=== PATIENT | female | born 1945 | race Caucasian/White ===

== ENCOUNTER 2016-04-25 19:31 | Observation (INO) | payer MEDICARE ==
[2016-04-25] MEDS ORDERED: KETOROLAC TROMETHAMINE 30 MG/ML VIAL IV ONE (19:38)
[2016-04-25] MEDS ORDERED: MORPHINE SULFATE 2 MG/ML DISP.SYRIN IV ONE (19:41)
[2016-04-25] MEDS ORDERED: MORPHINE SULFATE 2 MG/ML DISP.SYRIN ONE (19:41)
--- NOTE | 2016-04-25 19:48 | ERNOTE ---
Abdominal HPI - General Time Seen by Provider: 04/25/16 19:32 Source: patient, other Exam Limitations: no limitations - Immun/Allergies/Home Medications Immunizatons: IMMUNIZATION HX Immunizations Up to Date Yes Allergies/Adverse Reactions: Allergies pseudoephedrine HCl [From Sudafed] Allergy (Verified 04/25/16 19:56) Home Medications: HOME MEDICATIONS Aspirin 650 mg PO DAILY 11/19/15 [Last Taken Unknown] Methylcellulose [Fiber] 2 cap PO DAILY 11/19/15 [Last Taken Unknown] - History of Present Illness Narrative: Patient started to have abdominal pain around 14:30 this afternoon, was evaluated in the [facility] ER,diagnosed with acute appendicitis, and transferred here for surgery Date (Duration): 04/25/16 Time (Timing): 02:30 Timing: constant Quality: moderate Associated Symptoms: Absent: diaphoresis, fever/chills, nausea, vomiting Prior Abdominal Problems: Present: none Prior Treatment: Absent: recently seen, currently on antibiotics Review of Systems - Review of Systems Constitutional: Absent: recent illness, fever Respiratory: Absent: shortness of breath Cardiology: Absent: chest pain Gastrointestinal/Abdominal: Present: See HPI - Patient's Past Medical History Patient History - Medical: No pertinent hx Patient History - Cardiac/Respiratory: Hypertension Patient History - Cancer: No Hx of Cancer Patient History - Surgical Procedures: Tubal Ligation Patient History - Other: None - Social History Living Situations: home Psych History: No pertinent hx Alcohol Use: none Drug Use: none - Immunizations Immunizations Up to Date: Yes Physical Exam - Physical Exam General Appearance: Present: wd/wn, alert, mild distress Respiratory: Present: no respiratory distress, normal breath sounds, lungs clear Cardiovascular/Chest: Present: regular rate, rhythm, no murmur Gastrointestinal/Abdominal: Present: normal bowel sounds, tenderness - right sided, McBurney sign Neurological Exam: Present: alert, oriented, normal mood/affect Skin Exam: Present: normal color, warm/dry ED Progress - Results and Orders Results and Orders: reviewed chart from [facility] (labs and CT) - Vital Signs Patient's Vital Signs:: I have reviewed the patient's vital signs. - Progress/Reassessment Progress Note-Subjective: 04/25/16 19:[address] Oliver in ER Departure - Departure Clinical Impression: Acute appendicitis Qualifiers: Acute appendicitis type: unspecified acute appendicitis type Qualified Code(s) : K35.80 - Unspecified acute appendicitis Disposition: [facility] Condition: Good
[2016-04-25] MEDS ORDERED: CEFOXITIN SODIUM 2 GM in DEXTROSE 5 % IN WATER 100 ML IV ONE ×2 (20:15)
--- NOTE | 2016-04-25 20:23 | HP ---
Chief Complaint - Chief Complaint Date of Service: 04/25/16 Time of Service: 20:09 Chief Complaint: appendicitis History of Present Illness: Started having abdominal pain this afternoon. Presented to [facility] ER for evaluation. Found to have RLQ tenderness with CT scan evidence of acute appendicitis. There is no surgeon at that facility, and she was transferred here for treatment. - Patient's Past Medical History Patient History - Medical: No pertinent hx, Other - bleeding ulcer [facility] ?2006. She has been seen by Family Practice(?) at [facility] but not for 5 years Patient History - Cardiac/Respiratory: Hypertension Patient History - Cancer: No Hx of Cancer Patient History - Surgical Procedures: Tubal Ligation Patient History - Other: None - Family History Mother Family History - Medical: Other - appendicitis - Social History Living Situations: home Psych History: No pertinent hx Smoking Status: Never smoker Alcohol Use: none Drug Use: none - Immunizations Immunizations Up to Date: Yes Hx Pneumococcal Vaccination: No History of Influenza Vaccine: Yes Review Of Systems (GEN) - Review of Systems Generalized/Overall Review: Present: No Symptoms Reported EENTM: Present: Other - bug bite right cheek Respiratory: Present: No Symptoms Reported Cardiac: Absent: Chest Pain, Edema, Palpitations Abdominal: Present: Abdominal Pain, Other - hernia Genitourinary: Present: Other - wears a pad for leakage, occasional nocturia. Absent: Dysuria Musculoskeletal: Present: Joint Pain, Other - "arthritis" Neurological: Present: No Symptoms Reported Skin: Present: Other - lesion right cheek 3 days Immunizations: IMMUNIZATION HX Immunizations Up to Date Yes History of Influenza Vaccine Yes Hx Pneumococcal Vaccination No Allergies/Adverse Reactions: Allergies Allergy/AdvReac Type Severity Reaction Status Date / Time pseudoephedrine HCl Allergy Verified 04/25/16 19:56 [From [facility]] Home Medications: HOME MEDICATIONS Aspirin 650 mg PO DAILY 11/19/15 [Last Taken Unknown] Methylcellulose [Fiber] 2 cap PO DAILY 11/19/15 [Last Taken Unknown] Exam - Exam Vital Signs: Vital Signs - Last Taken Temp 37.8 C H 04/25/16 19:33 Pulse 89 04/25/16 19:55 Resp 20 04/25/16 19:55 BP 143/68 04/25/16 19:55 Pulse Ox 96 04/25/16 19:55 Constitutional: Present: Alert, Oriented x3, Cooperative, Mild distress ENT Exam: Present: hearing grossly normal, other - fetor jag Eye Exam: bilateral eye: normal inspection Neck: Present: other - short thick neck Breasts: Present: Exam deferred Respiratory: Present: lungs clear, no accessory muscle use Cardiovascular/Chest: Present: regular rate, rhythm, no JVD Abdomen: Present: other - tender with guarding RLQ, hernia to right of midline above umbilicus /Rectal: Present: Exam deferred Extremity: Present: normal range of motion, no pedal edema, no calf tenderness Skin Exam: Present: normal color Neurologic: Present: real estate manager II-XII nml as tested, no motor/sensory deficits Eye contact: Present: cooperative, good eye contact, normal speech Thoughts: Present: normal thought pattern Diagnostic Studies: CT shows acute appendicitis. Assessment/Plan - Assessment/Plan (1) Acute appendicitis Assessment: Discussed appendicitis and appendectomy. The risks of operation and expected course explained. Questions answered and informed consent obtained. SCD's, chlorhexidine wipes. Pre-op Mefoxin. Problem: Acute
[2016-04-25] MEDS ORDERED: RINGERS SOLUTION,LACTATED 1,000 ML IV ONE (20:40)
[2016-04-25] MEDS ORDERED: MUPIROCIN 22 APPL TUBE TP ONE (21:07)
[2016-04-25] MEDS ORDERED: BUPIVACAINE HCL/EPINEPHRINE 50 ML VIAL IJ ONE ×2 (21:07)
[2016-04-25] MEDS ORDERED: oxyCODONE HCL/ACETAMINOPHEN 1 TAB TABLET PO PRN (21:53)
[2016-04-25] MEDS ORDERED: ONDANSETRON HCL/PF 2 MG/ML VIAL IV PRN (21:53)
[2016-04-25] MEDS ORDERED: MORPHINE SULFATE 4 MG/ML SYRG IV PRN (21:53)
[2016-04-25] MEDS ORDERED: PANTOPRAZOLE SODIUM 40 MG in NORMAL SALINE 100 ML IV SCH (22:00)
--- NOTE | 2016-04-25 22:14 | OR ---
Operative Report - Dictated Report Narrative: OPERATIVE REPORT DATE OF OPERATION: 04/25/2016 PREOPERATIVE DIAGNOSIS: Acute appendicitis POSTOPERATIVE DIAGNOSIS: Acute appendicitis OPERATION: Laparoscopic appendectomy SURGEON: Robert Oliver MD ANESTHESIA: Gen. endotracheal Harjinder Fabian CRNA INDICATIONS FOR PROCEDURE: The patient is a 71-year-old female who started having abdominal pain this afternoon. The pain intensified and she presented to the ER at [facility]. She was found have right lower quadrant tenderness with CT scan evidence of acute appendicitis. There is no surgeon at that facility, and she was transferred here for treatment. FINDINGS: Acute suppurative appendicitis with localized peritonitis NARRATIVE OF PROCEDURE: The patient was identified in the holding area, and prior to the administration of anesthetic a multidisciplinary timeout was observed. The patient was placed supine, SCDs were applied, and 2 g of intravenous Mefoxin administered. Gen. endotracheal anesthetic was administered. The patient's abdomen was prepped with Betadine solution and a generous operating field isolated with 4 sterile towels. The remainder the patient was covered with a sterile disposable drape. A transverse infraumbilical skin incision was made. Dissection was carried along the umbilical stalk until the fascia of the linea alba was encountered. This was incised. The peritoneum was then elevated and incised to allow entry into the abdomen under direct vision. A Soto cannula was placed and the abdomen insufflated with CO2. The laparoscopic camera was introduced and the abdomen briefly explored. Mesenteric fat was seen to be herniated into an anterior abdominal wall defect in the right upper quadrant. This obscured visualization of the liver and gallbladder. Those portions of the colon, omentum, and small bowel visualized appeared normal. Under direct vision 2 additional working ports were inserted through separate skin incisions, one suprapubically and one in the left lower quadrant. The apex of the cecum was grasped and retracted. The tip of an inflamed appendix was located lateral to the cecum attached to the lateral abdominal wall. The appendix was gradually liberated by blunt and electrocautery dissection until it could be elevated. The base of the appendix and mesoappendix were then transected with a single application of a laparoscopic PAUL stapling device. The the stump of the appendix was seen to be gas and liquid tight and the mesoappendix appeared hemostatic. The appendix was placed in an Endobag and parked in the right lower quadrant. The right lower quadrant and pelvis were suctioned clean. The smaller working ports were then withdrawn under direct vision to ensure entry site hemostasis. The appendix was withdrawn in conjunction with the Soto cannula. The pneumoperitoneum was allowed to escape, and after receiving a correct sponge needle and instrument count attention was turned to closing the abdomen. The fascia and peritoneum were approximated with interrupted sutures of #1 Vicryl. Skin incisions were approximated with interrupted vertical mattress sutures of 4-0 nylon. The operative sites were washed and dried. Dressings of Bactroban ointment and large Band-Aids were applied to the small port sites. The umbilical incision was dressed with Bactroban ointment folded 2 x 2 and large Band-Aid with Medipore tape. The operative procedure was terminated at this point. The patient tolerated the anesthetic and procedure well without complication. There was no measurable blood loss. The appendix was submitted to pathology. 0.5% Marcaine with epinephrine was used for local anesthetic infiltration. The patient was transferred to the recovery room awake , extubated, and in stable condition. Reviewed and electronically signed
[2016-04-25] MEDS: RINGERS SOLUTION,LACTATED 1,000 ML IV PRN (23:04)
[2016-04-26] MEDS: CEFOXITIN SODIUM 2 GM in DEXTROSE 5 % IN WATER 100 ML IV SCH ×6 (02:23→14:26)
[2016-04-26] MEDS ORDERED: RINGERS SOLUTION,LACTATED 250 ML IV ONE (03:29)
[2016-04-26] MEDS: RINGERS SOLUTION,LACTATED 1,000 ML IV PRN (05:50)
[2016-04-26] MEDS ORDERED: MORPHINE SULFATE 2 MG/ML DISP.SYRIN IV PRN (06:38)
[2016-04-26 16:00] VITALS: BP 136/80
--- NOTE | 2016-04-26 16:01 | DS ---
(1) Acute appendicitis Problem: Acute Description of Stay: Underwent laparoscopic appendectomy for acute appendicitis with local peritonitis. Chlorhexidine wipes, IV Mefoxin pre and post-op, SCD's. Presenting pain resolved and incisional discomfort managed with PO Percocet. Tolerated advanced diet and OOB independently. Dressings dry. She does have findings suggestive of underlying sleep apnea. Procedures Performed: see notes below - laparoscopic appendectomy Discharge Disposition: Home self care Disposition: Home self-care Condition: Good Discharge Activity: Activity as tolerated, No Lifting Discharge Diet: General/regular food Problem Oriented Discharge Instructions to Patient/Family: Laparoscopic Appendectomy, Adult, Care After, [id number] Additional Patient Instructions (free text): office follow up in 1 week Prescriptions (Any new or edited meds): oxyCODONE HCL/ACETAMINOPHEN [Percocet 5 MG/325 MG] 1 tab PO Q4H PRN #14 tablet PRN Reason: Moderate Pain Complete Home Medications List: Complete Home Medication List: Aspirin 650 mg PO DAILY 11/19/15 Methylcellulose [Fiber] 2 cap PO DAILY 11/19/15 oxyCODONE HCL/ACETAMINOPHEN [Percocet 5 MG/325 MG] 1 tab PO Q4H PRN #14 tablet 04/26/16
== END 2016-04-26 17:37 | disposition home or self-care (01) ==
LOC: ER 19:31 → AMB 20:07 → MS 21:48 → INTOOBSV 21:48
PROVIDERS: ADMIT Surgery; ATTEND Surgery
PROC: 0DTJ4ZZ Resection of Appendix, Percutaneous Endoscopic Approach (ICD-10-PCS; principal; 2016-04-25 20:58)
DX: K35.89 Other acute appendicitis (principal); I10 Essential (primary) hypertension
CPT/HCPCS: 44970; 88304; 93005; 96365; 96375; 99284; G0378

== ENCOUNTER 2016-08-30 12:17 | Emergency (ER) | payer MEDICARE ==
--- NOTE | 2016-08-30 12:49 | ERNOTE ---
Date of Service: 08/30/16 Time Seen by Provider: 08/30/16 12:41 Stated Complaint: SOB Presenting Symptoms:: cough Source: patient, RN/MD, RN notes reviewed Exam Limitations: no limitations Immunizations: IMMUNIZATION HX Immunizations Up to Date Yes History of Influenza Vaccine Yes Hx Pneumococcal Vaccination No Allergies/Adverse Reactions: Allergies pseudoephedrine HCl [From Sudafed] Allergy (Verified 08/30/16 12:26) Home Medications: HOME MEDICATIONS Aspirin 650 mg PO DAILY 11/19/15 [Last Taken Unknown] Methylcellulose [Fiber] 2 cap PO DAILY 11/19/15 [Last Taken Unknown] Amox Tr/Potassium Clavulanate [Augmentin 875-125 Tablet] 875 mg PO Q12H #20 tab 08/30/16 [Last Taken Unknown] - History of Present Ilness Narrative: 71 y/o female sent to the ED from the walk-in clinic for a cough that began 6 days ago. She has been taken an unknown allergy medication without improvement. She was given a Duoneb treatment in the clinic, but continued to appear short of breath and have an SpO2 of only 92%. She has no prior history of respiratory problems and has never been a smoker. She did recently take a long bus trip. Frequency/Possible Cause: Reports: unknown cause Associated Symptoms: Reports: cough, shortness of breath, nasal congestion, nasal drainage, headache. Denies: chest pain/soreness, wheezing, facial pain, dizziness, lightheadedness, earache, sore throat, muscle aches Prior Treatment: Denies: recently seen Review of Systems - Review of Systems Constitutional: Present: fatigue, malaise. Absent: recent illness, chills EYE: Present: no symptoms reported ENT: Present: nose congestion, nasal drainage. Absent: ear pain, sore throat Respiratory: Present: shortness of breath, cough. Absent: orthopnea, wheezing Cardiology: Absent: chest pain, syncope, edema Gastrointestinal/Abdominal: Absent: nausea, vomiting, abdominal pain Genitourinary: Present: no symptoms reported Musculoskeletal: Present: no symptoms reported Skin: Absent: rash, lesions Neurological: Present: headache. Absent: dizziness/light-headedness Endocrine: Present: no symptoms reported Hematologic/Lymphatic: Present: no symptoms reported Psych: Present: no symptoms reported - Patient's Past Medical History Patient History - Medical: No pertinent hx Patient History - Cardiac/Respiratory: Hypertension Patient History - Cancer: No Hx of Cancer Patient History - Surgical Procedures: Appendectomy, Tubal Ligation Patient History - Other: None - Family History Mother Family History - Medical: Other Family History - Cardiac/Respiratory: CVA/Stroke, Hypertension, Myocardial Infarction - Social History Living Situations: home Psych History: No pertinent hx Smoking Status: Never smoker Alcohol Use: none Drug Use: none - Immunizations Immunizations Up to Date: Yes Hx Pneumococcal Vaccination: No History of Influenza Vaccine: Yes Physical Exam - Physical Exam General Appearance: Present: wd/wn, alert, mild distress, obese Eye Exam: Normal inspection: bilateral Ears, Nose, Throat: Present: nasal congestion, normal pharynx. Absent: hearing decreased, abnormal TM (R), abnormal TM (L), sinus pain/drainage, dry mucous membranes Neck: Present: normal inspection, nontender, supple. Absent: lymphadenopathy (R ), lymphadenopathy (L) Respiratory: Present: no respiratory distress, normal breath sounds, lungs clear , accessory muscle use - miild Cardiovascular/Chest: Present: regular rate, rhythm, no murmur, normal peripheral pulses Extremity Exam: Present: normal inspection, no edema Neurological Exam: Present: alert, oriented, no motor/sensory deficits, other - dysphoric. Absent: normal mood/affect Skin Exam: Present: normal color, warm/dry ED Progress - Results and Orders Patient's Lab Results:: I have reviewed the patient's lab results. - Vital Signs Patient's Vital Signs:: I have reviewed the patient's vital signs. Vital Signs: Vital Signs 08/30/16 12:22 Temperature 35.8 C L Pulse Rate 74 Respiratory 14 Rate Blood Pressure 161/81 O2 Sat by Pulse 95 Oximetry - X-Ray X-Ray #1 X-Ray: chest Interpretation: Reviewed by me X-ray Comments: History: Shortness of breath. Patient states cough and shortness of breath for six days. Technique: PA and lateral views. Comparison: None Findings: Heart size is prominent but still within normal limits. Vascularity appears within normal limits. There is mild elevation of the left hemidiaphragm. There are changes of underlying fibrosis. There are remote right-sided rib fractures. There are no focal infiltrates or effusions. There is mild hyperinflation of the lung mari. There are mild degenerative changes in the thoracic spine. IMPRESSION: NO ACUTE CARDIOPULMONARY DISEASE IDENTIFIED. Electronically signed by Esau Fox M.D.. - CT/Ultrasound CT/Ultrasound Narrative: Preliminary read from Dr. Simmons shows no evidence on PE on CTA chest - Progress/Reassessment Chief Complaint: Upper Respiratory Symptoms Progress:: Unchanged Progress Note-Subjective: 08/30/16 14:14 Had discussed unremarkable CXR and CBC with patient. Explained that her low oxygen saturation needs further evaluation. Patient is somewhat argumentative and reported to nurse that she just wanted some amoxicillin so she could go home. When I went back to room a few minutes later to inform patient that her Ddimer was elevated and she would need a CT scan, the patient was not in room and her belongings are gone. 08/30/16 14:38 Patient was found in the clinic and returned to the ED. Explained need for chest CT to r/o PE several times. Patient remains argumentative but agrees to have CT scan. 08/30/16 16:[address] results. Patient continues to be disagreeable. She is unhappy about the wait time and the tests that have been done. She states she only came here to get an antibiotic for her cough. Departure - Departure Clinical Impression: Bronchitis Sinusitis, acute Qualifiers: Sinusitis location: unspecified location Recurrence: non-recurrent Qualified Code(s): J01.90 - Acute sinusitis, unspecified Disposition: Home Follow Up Needed Condition: Stable Instructions: Acute Bronchitis Prescriptions: Amox Tr/Potassium Clavulanate [Augmentin 875-125 Tablet] 875 mg PO Q12H #20 tab
--- OUTSIDE RECORDS SUMMARY | 2016-08-30 12:52 | XMS REPORT | Continuity of Care Document ---
:1945 Author Organization [facility] ([facility]) Address [address] [place] [address] Phone [phone] Care Team Providers Name Role Phone Provider, No-Primary Care Primary Care Provider Unavailable Source Comments This disclosure is being made pursuant to the Care Everywhere program, applicable federal and state laws, and may not contain all informaitonavailable regarding this patient.[facility] ([facility]) Active Allergies and Adverse Reactions Allergen Noted Date Severity Reactions Comments Pseudoephedrine OTHER "Sleepy" Current Medications Prescription Sig. Disp. Refills Start Date End Date Status aspirin 81 mg tablet take 1 Tab by mouth 30 Each 12/05/2008 Active daily. Indications: Cerebral Thromboembolism Prevention Herbal Drugs (COLON take 2 Caps by mouth Active HERBAL CLEANSER) Cap daily. CALCIUM take 1 Tab by mouth Active CARBONATE/VITAMIN D3 daily. (CALCIUM + D PO) FLAXSEED OIL PO take 1 Tab by mouth 2 Active times daily. GLUCOSAMINE HCL Active (GLUCOSAMINE, BULK,) OTHER Natural Herbal Active Diuretic. 2 tabs qAM & 1 tab PRN at bedtime. Active Problems Problem Noted Date Osteoarthritis 01/21/2012 Dizziness 01/21/2012 Edema 01/21/2012 Lipid disorder 12/05/2008 Epigastric hernia 12/05/2008 DJD (degenerative joint disease), multiple sites 12/05/2008 Obesity 12/05/2008 Resolved Problems Problem Noted Date Resolved Date Hernia of other specified sites of abdominal cavity without 05/20/20052008 mention of obstruction or gangrene Abdominal pain, unspecified site 05/20/2005 12/05/2008 Immunizations Name Dates Previously Given Next Due Tdap 01/21/2012 Social History Tobacco Use Types Packs/Day Years Used Date Never Smoker Tobacco Cessation:Counseling Given: Yes Comments: Alcohol Use Drinks/Week oz/Week Comments No Last Filed Vital Signs Vital Sign Reading Time Taken Blood Pressure 132/84 11/21/2012 8:57 AM CDT Pulse 72 11/21/2012 8:57 AM CDT Temperature 36.7 C (98.1 F) 01/21/2012 10:00 AM CDT Respiratory Rate 16 11/21/2012 8:57 AM CDT Height 1.626 m (5' 4") 01/21/2012 10:00 AM CDT Weight 100.064 kg (220 lb 9.6 oz) 11/21/2012 8:57 AM CDT Body Mass Index 37.85 11/21/2012 8:57 AM CDT Oxygen Saturation 96% 03/03/2009 1:50 PM [employer] Plan of Care Health Maintenance Due Date Last Done Comments HCV Screening 1945 Hepatitis B Vaccine (1 of 3 1945 - Primary Series) Zoster Vaccine 2006 Osteoporosis Screening (DXA 2011 Bone Density) Pneumococcal Vaccine (1 of 2 2011 - PCV13) Mammogram 11/21/2013 11/21/2012, 12/03/2008, 05/20/2005 Influenza Vaccine: Seasonal 10/20/2015 (#1) Lipid Disorder Screening 11/21/2017 11/21/2012, Additional history exists 01/21/2012, 12/03/2008 Colonoscopy 03/05/2019 03/05/2009 Td Vaccine 01/20/2022 01/21/2012 Tdap Vaccine Completed 01/21/2012 Results from Last 3 Months Not on file
[2016-08-30 13:09] LABS: Hematocrit 42.6 % (37.0-47.0); Hemoglobin 14.2 gm/dL (12.5-16.0); Mean Cell Volume 87.5 fl (78-100); Mean Corpuscular Hemoglobin 29.2 pg (27-31); Mean Corpuscular Hgb Conc 33.3 g/dl (32-36); Mean Platelet Volume 11.4 fl (6.0-9.5); Platelet Count 225 K/mm3 (150-450); Red Blood Count 4.87 M/mm3 (4.2-5.4); Red Cell Distribution Width 13.2 % (11.5-14.0)
[2016-08-30 13:11] LABS: Total Cells Counted 100
[2016-08-30 13:27] LABS: Albumin * 3.5 gm/dl (3.4-5.0); BUN/Creatinine Ratio 23.2 (9.0-21.6); Bilirubin, Total 0.6 mg/dL (0.0-1.1); Ca. Corrected For Albumin 9.5 mg/dL (8.4-10.2); Calcium * 9.4 mg/dL (7.9-10.9); Carbon Dioxide 29.1 mmol/L (24-32.6); Potassium 4.1 mmol/L (3.4-4.6); Total Protein 7.9 gm/dL (6.2-8.2)
[2016-08-30 13:30] LABS: Atypical (Reactive) Lymph 5 % (0-2); Eosinophil 1 % (0-3); Lymphocyte 22 % (20-51); Monocyte 4 % (0-9); Neutrophil 68 % (42-75); Neutrophil # 4.1 K/mm3 (1.3-6.0)
[2016-08-30 13:31] LABS: Urine Bilirubin Negative (NEGATIVE); Urine Blood Negative /ul (NEGATIVE); Urine Ketone Negative (NEGATIVE); Urine Nitrite Negative (NEGATIVE); Urine Protein 15 mg/dL (NEGATIVE); Urine Specific Gravity >=1.030 SP.GR. (1.005-1.010); Urine Urobilinogen Normal (NORMAL)
[2016-08-30 13:31] LABS: Giant Platelets Trace; Platelet Estimate Normal (NORMAL); RBC Morphology Normal (NORMAL)
[2016-08-30 13:40] LABS: Urine Appearance Slightly Cloudy; Urine Bacteria 1+; Urine Color Yellow; Urine RBC None Seen /hpf (0-5); Urine WBC TRACE /hpf (0-5)
[2016-08-30 16:40] VITALS: BP 157/87
== END 2016-08-30 16:49 | disposition home or self-care (01) ==
LOC: ER 12:17
DX: J20.9 Acute bronchitis, unspecified (principal); J01.90 Acute sinusitis, unspecified

== ENCOUNTER 2020-09-08 21:22 | Observation (INO) ==
[2020-09-08] MEDS ORDERED: VANCOMYCIN/WATER FOR INJ (PEG) 1 GM/200 ML BAG IV ONE (21:56)
[2020-09-08] MEDS ORDERED: DILTIAZEM HCL 5 MG/ML VIAL IV ONE (21:57)
[2020-09-08] MEDS ORDERED: DILTIAZEM HCL 125 MG in NORMAL SALINE 100 ML IV PRN (21:57)
[2020-09-08 22:12] LABS: Hematocrit 41.9 % (37.0-47.0); Hemoglobin 13.5 gm/dL (12.5-16.0); Mean Cell Volume 92.1 fl (78-100); Mean Corpuscular Hemoglobin 29.7 pg (27-31); Mean Corpuscular Hgb Conc 32.2 g/dl (32-36); Mean Platelet Volume 11.6 fl (8-12.5); Neutrophil # 2.7 K/mm3 (1.3-6.0); Neutrophil % 54.4 % (42-75.0); Platelet Count 199 K/mm3 (150-450); Red Blood Count 4.55 M/mm3 (4.2-5.4); Red Cell Distribution Width 13.4 % (11.5-14.0); White Blood Count 4.9 K/mm3 (4.0-10.5)
[2020-09-08 22:25] LABS: Prothrombin Time (Patient) 10.8 Seconds (9.1-10.7)
[2020-09-08 22:29] LABS: ALT 28 U/L (19-67); AST 14 U/L (0-48); Albumin * 3.3 gm/dl (3.4-5.0); Alkaline Phosphatase * 70 U/L (50-170); Anion Gap 10.5 mmol/L (6.8-13.8); BUN/Creatinine Ratio 21.2 (9.0-21.6); Bilirubin, Total 0.4 mg/dL (0.0-1.1); Blood Urea Nitrogen 21 mg/dL (3-23); CRP 0.7 mg/dL (0.0-0.9); Ca. Corrected For Albumin 9.1 mg/dL (8.4-10.2); Calcium * 8.9 mg/dL (7.9-10.9); Carbon Dioxide 25.2 mmol/L (24-32.6); Chloride 108 mmol/L (97-106); Glucose * 136 mg/dL (70-110); Potassium 3.7 mmol/L (3.4-4.6); Sodium 140 mmol/L (132-142); Total Protein 6.9 gm/dL (6.2-8.2); Troponin I Less than 0.017 ng/mL (0.00-0.10)
[2020-09-08 22:32] LABS: INR 1.04 INR (0.92-1.08); Partial Thrombolplastin Time 26.5 Seconds (24-32)
--- NOTE | 2020-09-08 23:30 | ERNOTE ---
Integumentary HPI - Narrative Date of Service: 09/08/20 - General Presenting Symptoms: other - Left middle finger redness, hand redness Time Seen by Provider: 09/08/20 21:44 Source: patient - Immun/Allergies/Home Medications Immunizations: IMMUNIZATION HX Immunizations Up to Date Yes Immunizations Comment Full COVID vaccine History of Influenza Vaccine Yes Hx Pneumococcal Vaccination Yes Allergies/Adverse Reactions: Allergies Allergy/AdvReac Type Severity Reaction Status Date / Time pseudoephedrine HCl Allergy Verified 09/08/20 21:36 [From [facility]] Home Medications: HOME MEDICATIONS Aspirin 325 mg PO DAILY 11/19/15 [Last Taken Unknown] Methylcellulose [Fiber] 2 cap PO DAILY 11/19/15 [Last Taken Unknown] - History of Present Illness Narrative: 75-year-old female presents complaining of redness extending from her left middle finger up into her hand into her distal forearm. She states that she was reaching for something on a shelf and felt a little poke next to her fingernail. She started having worsening redness and swelling today. No abscess. She denies fever or chills. She adds that she often has fluttering in her chest. She has palpitations at times. She denies chest pain, pressure or tightness. She denies back pain or abdominal pain. She denies vomiting or diarrhea. She denies headache. She denies Covid symptoms. She takes no medications other than aspirin that she placed herself on. Review of Systems - Review of Systems Constitutional: Present: no symptoms reported. Absent: fever, chills ENT: Present: no symptoms reported Respiratory: Present: no symptoms reported. Absent: shortness of breath, cough Cardiology: Present: palpitations. Absent: chest pain, syncope Gastrointestinal/Abdominal: Present: no symptoms reported Genitourinary: Present: no symptoms reported Skin: Present: other - Redness from the left middle fingertip up into the hand and distal forearm Neurological: Present: no symptoms reported Medical History (Last Reviewed 09/08/20 @ 23:24 by Malinda Alex DO) Arthritis (Chronic) Onset Date: Unknown Common migraine (Inactive) Onset Date: Unknown Acute appendicitis (Acute) Onset Date: Unknown Sinusitis, acute (Acute) Onset Date: Unknown Bronchitis (Acute) Onset Date: Unknown Surgical History: Surgical History (Last Reviewed 09/08/20 @ 23:24 by Malinda Alex DO) History of appendectomy (Inactive) Onset Date: Unknown Family History: Family History (Last Reviewed 09/08/20 @ 23:24 by Malinda Alex DO) Heart disease Cancer Social History: (Last Reviewed 09/08/20 @ 23:24 by Malinda Alex DO) Social History: adopted: No Marital status: Single lives independently: Yes household members: none number of children: 2 current occupational status: retired Highest level of school completed/degree received: some college, no degree Sexually Active: No Service: No Tobacco: Smoking Status: Never smoker Alcohol: alcohol intake: current Substance Use: substance use type: does not use Dietary Habits: caffeine: Yes Physical Exam - Physical Exam General Appearance: Present: alert, no apparent distress Ears, Nose, Throat: Present: normal ENT inspection Respiratory: Present: no respiratory distress, normal breath sounds Cardiovascular/Chest: Present: tachycardia, irregularly irregular Gastrointestinal/Abdominal: Present: nontender, soft Extremity Exam: Present: other - Redness from the distal left middle finger up into the distal forearm, warmth to the touch, no abscess Progress - Results and Orders Patient's Lab Results:: I have reviewed the patient's lab results. - Vital Signs Patient's Vital Signs:: I have reviewed the patient's vital signs. Vital Signs: Vital Signs 09/08/20 21:30 09/08/20 22:05 09/08/20 22:07 Temperature 35.5 C L Pulse Rate 160 H 144 H 157 H Respiratory Rate 20 15 Blood Pressure 144/117 H 145/92 H 145/92 H O2 Sat by Pulse Oximetry 95 95 09/08/20 22:10 09/08/20 22:14 09/08/20 22:15 Temperature Pulse Rate 153 H 104 H 99 Respiratory Rate 14 22 H 21 H Blood Pressure 142/88 146/99 H 134/58 O2 Sat by Pulse Oximetry 95 92 L 91 L 09/08/20 22:20 09/08/20 22:30 09/08/20 23:01 Temperature Pulse Rate 80 76 76 Respiratory Rate 15 20 15 Blood Pressure 133/59 138/72 132/64 O2 Sat by Pulse Oximetry 93 91 L 92 L - Progress/Reassessment Chief Complaint: Cellulitis Progress:: Improved Progress Note-Subjective: 09/08/20 23:25 75-year-old female presents complaining of redness of her left middle finger. Patient arrived in atrial fibrillation with rapid ventricular response. She was placed on a environmental monitoring specialist, placed on continuous pulse oximetry. EKG showed atrial fibrillation at a rate of 160. She has no known history of atrial fibrillation. However, does sound like clinically, she has been in atrial fibrillation prior to today. She complains of palpitations and often fluttering in her chest. The only medications that she takes is aspirin, that she placed herself on. She was given Cardizem 20 mg IV push which brought her heart rate down into the 80s. I did order a Cardizem drip which was held because for the last 2 hours she has maintained a heart rate in the 80s or 90s with only the initial Cardizem bolus. She had 2 blood cultures drawn though was given vancomycin 1 g IV piggyback. There is nothing to drain over the left middle finger. I discussed all of her results with her. I discussed the atrial fibrillation as well as the cellulitis. I discussed the case with the hospitalist on-call, Dr. Acuna. She accepted the patient for admission to the hospital. I wrote bridging orders. Departure Clinical Impression: Atrial fibrillation with rapid ventricular response Cellulitis Qualifiers: Site of cellulitis: extremity Site of cellulitis of extremity: upper extremity Laterality: left Qualified Code(s): L03.114 - Cellulitis of left upper limb Clinical Impression: (Ruled Out): Cellulitis and abscess of hand - Departure Disposition: Home self-care Condition: Stable
[2020-09-09] MEDS ORDERED: ENOXAPARIN SODIUM 80 MG/0.8 ML DISP.SYRIN SC ONE (01:24)
[2020-09-09] MEDS ORDERED: diphenhydrAMINE HCL 50 MG/ML VIAL IV ONE (01:37)
--- NOTE | 2020-09-09 01:52 | HP ---
Chief Complaint - Chief Complaint Date of Service: 09/08/20 Chief Complaint: itchy right hand History of Present Illness: This is a 75yo female with a history of obesity who presents to the Emergency Department with an itchy left hand. She feels she had a bug bite to the left middle finger and has noticed that over the last 24hrs it has become progressively swollen, painful and warm to touch. She denies any chest pain, sob, rodriguez, orthopnea, palpitations. She takes a full dose aspirin daily and does not see a physician regularly and wishes to keep this habit. She presented to our ED and was noted to be in Afib with RVR with a HR in the 130's. She was given IV diltiazem and started on a drip. Medical History (Last Updated 09/09/20 @ 01:11 by Terri Price RN) Arthritis (Chronic) Onset Date: Unknown Common migraine (Inactive) Onset Date: Unknown Acute appendicitis (Acute) Onset Date: Unknown Sinusitis, acute (Acute) Onset Date: Unknown Bronchitis (Acute) Onset Date: Unknown Tear of meniscus of right knee Surgical History: Surgical History (Last Reviewed 09/08/20 @ 23:24 by Malinda Alex DO) History of appendectomy (Inactive) Onset Date: Unknown Family History: Family History (Last Reviewed 09/08/20 @ 23:24 by Malinda Alex DO) Heart disease Cancer Social History: (Last Reviewed 09/08/20 @ 23:24 by Malinda Alex DO) Social History: adopted: No Marital status: Single lives independently: Yes household members: none number of children: 2 current occupational status: retired Highest level of school completed/degree received: some college, no degree Sexually Active: No Service: No Tobacco: Smoking Status: Never smoker Alcohol: alcohol intake: current Substance Use: substance use type: does not use Dietary Habits: caffeine: Yes Review Of Systems (GEN) - Review of Systems EENTM: Present: No Symptoms Reported Respiratory: Present: No Symptoms Reported. Absent: Cough, Shortness of Breath Cardiac: Present: No Symptoms Reported. Absent: Chest Pain, Palpitations, Syncope Abdominal: Present: No Symptoms Reported. Absent: Nausea, Vomiting, Hematemesis, Abdominal Pain, Constipation Genitourinary: Present: No Symptoms Reported. Absent: Urgency, Frequency Neurological: Present: No Symptoms Reported. Absent: Headache, Numbness, Parasthesia, Pre-existing Deficit Skin: Present: Rash Immunizations: IMMUNIZATION HX Immunizations Up to Date Yes Immunizations Comment Full COVID vaccine History of Influenza Vaccine Yes Hx Pneumococcal Vaccination Yes Allergies/Adverse Reactions: Allergies Allergy/AdvReac Type Severity Reaction Status Date / Time pseudoephedrine HCl Allergy Verified 09/08/20 21:36 [From [facility]] Home Medications: HOME MEDICATIONS Aspirin 325 mg PO DAILY 11/19/15 [Last Taken Unknown] Exam - Exam Vital Signs: Vital Signs - Last Taken Temp 35.5 C L 09/09/20 01:07 Pulse 93 09/09/20 01:07 Resp 19 09/09/20 01:07 BP 136/94 H 09/09/20 01:07 Pulse Ox 91 L 09/09/20 01:07 Constitutional: Present: Alert, Oriented x3, Cooperative, No distress Respiratory: Present: lungs clear, normal breath sounds, no respiratory distress. Absent: accessory muscle use, wheezing Cardiovascular/Chest: Present: no murmur, irregularly irregular Abdomen: Present: Normal bowel sounds, nontender Extremity: Present: normal range of motion, normal inspection Skin Exam: Present: other - swelling and erythema over left hand Appearance: Present: appropriate appearance, appropriate insight, no memory impairment Eye contact: Present: cooperative, good eye contact, normal speech Thoughts: Present: normal thought pattern, no apparent hallucination Diagnostic Studies: Abnormal Lab Results 09/08/20 09/08/20 09/08/20 Range/Units 22:05 22:05 22:05 Monocytes % 11.7 H (0.0-9) % Eosinophils % 4.7 H (0.0-3.0) % Lymphocytes # 1.36 L (1.5-3.5) k/mm3 PT 10.8 H (9.1-10.7) Seconds Chloride 108 H (97-106) mmol/L Est GFR (Non-Af Amer) 58 L (60-130) mL/min Random Glucose 136 H (70-110) mg/dL Albumin 3.3 L (3.4-5.0) gm/dl Laboratory Results WBC 4.9 K/mm3 (4.0-10.5) 09/08/20 22:05 RBC 4.55 M/mm3 (4.2-5.4) 09/08/20 22:05 Hgb 13.5 gm/dL (12.5-16.0) 09/08/20 22:05 Hct 41.9 % (37.0-47.0) 09/08/20 22:05 MCV 92.1 fl (78-100) 09/08/20 22:05 MCH 29.7 pg (27-31) 09/08/20 22:05 MCHC 32.2 g/dl (32-36) 09/08/20 22:05 RDW 13.4 % (11.5-14.0) 09/08/20 22:05 Plt Count 199 K/mm3 (150-450) 09/08/20 22:05 MPV 11.6 fl (8-12.5) 09/08/20 22:05 Immature Gran % (Auto) 0.40 % (0.001-0.429) 09/08/20 22:05 Immature Gran # (Auto) 0.02 K/mm3 (0.000-0.0310) 09/08/20 22:05 Neutrophils % 54.4 % (42-75.0) 09/08/20 22:05 Lymphocytes % 27.8 % (20-51) 09/08/20 22:05 Monocytes % 11.7 % (0.0-9) H 09/08/20 22:05 Eosinophils % 4.7 % (0.0-3.0) H 09/08/20 22:05 Basophils % 1.0 % (0.0-1.0) 09/08/20 22:05 Nucleated RBC % 0.0 k/mm3 (0-1) 09/08/20 22:05 Neutrophils # 2.7 K/mm3 (1.3-6.0) 09/08/20 22:05 Lymphocytes # 1.36 k/mm3 (1.5-3.5) L 09/08/20 22:05 Monocytes # 0.6 k/mm3 (0.0-1.0) 09/08/20 22:05 Eosinophils # 0.2 k/mm3 (0.0-0.7) 09/08/20 22:05 Absolute Basophils 0.1 k/mm3 (0.0-0.1) 09/08/20 22:05 PT 10.8 Seconds (9.1-10.7) H 09/08/20 22:05 INR (Anticoag Therapy) 1.04 INR (0.92-1.08) 09/08/20 22:05 PTT (Yelena) 26.5 Seconds (24-32) 09/08/20 22:05 Sodium 140 mmol/L (132-142) 09/08/20 22:05 Plasma Sodium 141 mmol/L (130-142) 09/08/20 22:05 Potassium 3.7 mmol/L (3.4-4.6) 09/08/20 22:05 Chloride 108 mmol/L (97-106) H 09/08/20 22:05 Carbon Dioxide 25.2 mmol/L (24-32.6) 09/08/20 22:05 Anion Gap 10.5 mmol/L (6.8-13.8) 09/08/20 22:05 BUN 21 mg/dL (3-23) 09/08/20 22:05 Creatinine 0.99 mg/dL (0.4-1.4) 09/08/20 22:05 Est GFR (Non-Af Amer) 58 mL/min (60-130) L 09/08/20 22:05 BUN/Creatinine Ratio 21.2 (9.0-21.6) 09/08/20 22:05 Random Glucose 136 mg/dL (70-110) H 09/08/20 22:05 Lactic Acid, Venous 1.9 mmol/L (0.4-2.0) 09/08/20 22:05 Calcium 8.9 mg/dL (7.9-10.9) 09/08/20 22:05 Calcium Adj for Albumin 9.1 mg/dL (8.4-10.2) 09/08/20 22:05 Total Bilirubin 0.4 mg/dL (0.0-1.1) 09/08/20 22:05 AST 14 U/L (0-48) 09/08/20 22:05 ALT 28 U/L (19-67) 09/08/20 22:05 Alkaline Phosphatase 70 U/L (50-170) 09/08/20 22:05 Troponin I Less than 0.017 ng/mL (0.00-0.10) 09/08/20 22:05 C-Reactive Prot, Quant 0.7 mg/dL (0.0-0.9) 09/08/20 22:05 Total Protein 6.9 gm/dL (6.2-8.2) 09/08/20 22:05 Albumin 3.3 gm/dl (3.4-5.0) L 09/08/20 22:05 SARS-CoV-2 (PCR) Not detected (NotDetected) 09/08/20 23:26 Assessment/Plan - Narrative Narrative: #Left Hand Cellulitis She does not have sepsis -received one dose of Vanco in the ED -continue with IV Clindamycin -monitor and demarginate area #Afib with RVR Secondary to infection, as above -check echo -tsh -mag, phos -trend troponin -d/w patient anticoagulation and side effects, she opts for one dose of enoxaparin this shift and then to reconsider and possibly start oral aspirin, dw her chardsvasc score and risk of stroke -start metoprolol 25mg bid, continue iv dilt drip and wean off as possible
[2020-09-09] MEDS: METOPROLOL TARTRATE 25 MG TABLET PO SCH ×3 (02:17→13:50)
[2020-09-09] MEDS: CLINDAMYCIN IN 0.9 % SOD CHLOR 900 MG/50 ML BAG IV SCH ×2 (02:34→09:57)
[2020-09-09 06:29] LABS: Hematocrit 40.6 % (37.0-47.0); Hemoglobin 12.8 gm/dL (12.5-16.0); Mean Cell Volume 92.5 fl (78-100); Mean Corpuscular Hemoglobin 29.2 pg (27-31); Mean Corpuscular Hgb Conc 31.5 g/dl (32-36); Mean Platelet Volume 11.7 fl (8-12.5); Neutrophil # 2.8 K/mm3 (1.3-6.0); Neutrophil % 56.2 % (42-75.0); Platelet Count 178 K/mm3 (150-450); Red Blood Count 4.39 M/mm3 (4.2-5.4); Red Cell Distribution Width 13.3 % (11.5-14.0); White Blood Count 4.9 K/mm3 (4.0-10.5)
[2020-09-09 06:46] LABS: Anion Gap 8.3 mmol/L (6.8-13.8); BUN/Creatinine Ratio 18.4 (9.0-21.6); Calcium * 8.7 mg/dL (7.9-10.9); Carbon Dioxide 27.6 mmol/L (24-32.6); Magnesium 2.1 mg/dL (1.2-2.8); Phosphorus 3.7 mg/dL (2.2-4.2); Potassium 3.9 mmol/L (3.4-4.6)
--- NOTE | 2020-09-09 08:12 | PN ---
Subjective - Date and Time Seen Date: 09/09/20 Time: 08:12 Subjective Narrative: She was cleaning the outside of her car 2 nights ago and felt a sudden sting in her left 3rd digit. Isn't sure if something bit her or she was poked by something sharp. Pain worsened yesterday. She feels like it's a bit better this morning, and isn't as swollen. She periodically notices her heart feeling like it's "wooshing," but no SOB or nausea with that. Objective - Review of Systems Generalized/Overall Review: Denies: Fever Respiratory: Denies: Cough, Shortness of Breath Cardiac: Reports: Edema. Denies: Chest Pain Abdominal: Denies: Nausea, Vomiting Genitourinary Symptoms: Reports: No Symptoms Reported Skin: Reports: Other - pain, itching of left hand - Vitals Vitals: Last Vital Signs Temp 36.3 C 09/09/20 07:00 Pulse 99 09/09/20 07:00 Resp 20 09/09/20 07:00 BP 113/74 09/09/20 07:00 Pulse Ox 93 09/09/20 07:00 - Abnormal Lab Findings Abnormal Lab Findings: Abnormal Lab Results 09/08/20 09/08/20 09/08/20 Range/Units 22:05 22:05 22:05 MCHC (32-36) g/dl Monocytes % 11.7 H (0.0-9) % Eosinophils % 4.7 H (0.0-3.0) % Basophils % (0.0-1.0) % Lymphocytes # 1.36 L (1.5-3.5) k/mm3 PT 10.8 H (9.1-10.7) Seconds Chloride 108 H (97-106) mmol/L Est GFR (Non-Af Amer) 58 L (60-130) mL/min Random Glucose 136 H (70-110) mg/dL Albumin 3.3 L (3.4-5.0) gm/dl TSH (Reflex) (0.358-3.74) uIU/mL 09/09/20 09/09/20 Range/Units 06: 06:22 MCHC 31.5 L (32-36) g/dl Monocytes % 11.0 H (0.0-9) % Eosinophils % 4.3 H (0.0-3.0) % Basophils % 1.2 H (0.0-1.0) % Lymphocytes # 1.33 L (1.5-3.5) k/mm3 PT (9.1-10.7) Seconds Chloride 109 H (97-106) mmol/L Est GFR (Non-Af Amer) (60-130) mL/min Random Glucose (70-110) mg/dL Albumin (3.4-5.0) gm/dl TSH (Reflex) 5.152 H (0.358-3.74) uIU/mL - Exam Constitutional: Present: Alert, Cooperative, Elderly, Morbidly obese Respiratory: Present: normal breath sounds, no respiratory distress Cardiovascular/Chest: Present: irregularly irregular Abdomen: Present: soft, nontender Extremity: Present: lower extremity edema - 1+ bilaterally Skin Exam: Present: other - 3 punctate lesions of distal left 3rd digit with mild erythema and edema of 3rd digit and distal hand Eye contact: Present: cooperative, good eye contact Thoughts: Present: other - appears anxious Assessment/Plan Plan Narrative: Will continue clindamycin for the cellulitis, and added hydroxyzine for her itching. She avoids physicians, so she's probably not had antibiotics recently, which reduces her c diff risk. Her HR is in the 90's. She received her metoprolol dose early this morning. Since her HR is around or less than 100, will stop the cardizem drip, which is currently at 5 mg/hr. Will need to further discuss anticoagulation. She was examined just prior to her echo. Patient prefers not to see physicians regularly. If her HR is controlled and she feels well, may DC later this afternoon. Will try to encourage her to establish with a physician to avoid future hospitalizations. - Problems/Diagnosis (1) Atrial fibrillation with rapid ventricular response Problem: Acute (2) Cellulitis Problem: Acute Qualifiers: Site of cellulitis: extremity Site of cellulitis of extremity: upper extremity Laterality: left Qualified Code(s): L03.114 - Cellulitis of left upper limb
[2020-09-09] MEDS ORDERED: hydrOXYzine HCL 25 MG TABLET PO PRN (08:17)
[2020-09-09] MEDS ORDERED: ACETAMINOPHEN 325 MG TABLET PO PRN (16:06)
[2020-09-09] MEDS: CLINDAMYCIN HCL 150 MG CAPSULE PO SCH ×2 (16:09→21:48)
[2020-09-10] MEDS: METOPROLOL TARTRATE 25 MG TABLET PO SCH (03:07)
[2020-09-10] MEDS: CLINDAMYCIN HCL 150 MG CAPSULE PO SCH (03:08)
--- NOTE | 2020-09-10 08:43 | DS ---
(1) Cellulitis Problem: Acute Qualifiers: Site of cellulitis: extremity Site of cellulitis of extremity: upper extremity Laterality: left Qualified Code(s): L03.114 - Cellulitis of left upper limb (2) Atrial fibrillation with rapid ventricular response Problem: Resolved Date of Discharge:: 09/10/20 Hospital Course: She was cleaning the outside of her car the night before admission and felt a sudden sting in her left 3rd finger. Isn't sure if something bit her or she was poked by something sharp. Pain worsened and she went to the ED, where she was diagnosed with cellulitis. She was given a dose of IV vancomycin and started on IV clindamycin. She was also found to be in afib with RVR, with a heart rate initially 160. She was started on a diltiazem drip and po metoprolol, and converted back into sinus rhythm on 09/09. She adamantly declined medications for rate control and anticoagulation, despite education provided by myself and 3 nurses. She does not typically see a physician, and does not have prescription drug coverage. Discussed her increased risk for stroke, but she still declines. I would recommend 25 mg metoprolol bid and coumadin (cost effective option), but she will not take them. Her finder redness and swelling improved, and she felt comfortable going home on the day of DC. She agrees to taking 450 mg clindamycin tid (8 am, 4 pm, midnight) after DC, and agrees to seeing to me for a follow up. 40 minutes spent on DC to include chart review, physical exam, education provided, and note writing. Procedures Performed: none Results and Findings: Pending Mircobiology Results 09/08/20 22:50 Blood Blood Culture - Preliminary NO GROWTH 24 HOURS 09/08/20 22:05 Blood Blood Culture - Preliminary NO GROWTH 24 HOURS Lab Pending Results 09/08/20 22:05: WBC 4.9, RBC 4.55, Hgb 13.5, Hct 41.9, MCV 92.1, MCH 29.7, MCHC 32.2, RDW 13.4, Plt Count 199, MPV 11.6, Immature Gran % (Auto) 0.40, Immature Gran # (Auto) 0.02, Neutrophils % 54.4, Lymphocytes % 27.8, Monocytes % 11.7 H, Eosinophils % 4.7 H, Basophils % 1.0, Nucleated RBC % 0.0, Neutrophils # 2.7, Lymphocytes # 1.36 L, Monocytes # 0.6, Eosinophils # 0.2, Absolute Basophils 0.1 09/08/20 22:05: PT 10.8 H, INR (Anticoag Therapy) 1.04, PTT ([place]) 26.5 09/08/20 22:05: Sodium 140, Plasma Sodium 141, Potassium 3.7, Chloride 108 H, Carbon Dioxide 25.2, Anion Gap 10.5, BUN 21, Creatinine 0.99, Est GFR (Non-Af Amer) 58 L, BUN/Creatinine Ratio 21.2, Random Glucose 136 H, Calcium 8.9, Calcium Adj for Albumin 9.1, Total Bilirubin 0.4, AST 14, ALT 28, Alkaline Phosphatase 70, Troponin I Less than 0.017, C-Reactive Prot, Quant 0.7, Total Protein 6.9, Albumin 3.3 L 09/08/20 22:05: Lactic Acid, Venous 1.9 09/08/20 23:26: SARS-CoV-2 (PCR) Not detected 09/09/20 06:22: WBC 4.9, RBC 4.39, Hgb 12.8, Hct 40.6, MCV 92.5, MCH 29.2, MCHC 31.5 L, RDW 13.3, Plt Count 178, MPV 11.7, Immature Gran % (Auto) 0.20, Immature Gran # (Auto) 0.01, Neutrophils % 56.2, Lymphocytes % 27.1, Monocytes % 11.0 H, Eosinophils % 4.3 H, Basophils % 1.2 H, Nucleated RBC % 0.0, Neutrophils # 2.8, Lymphocytes # 1.33 L, Monocytes # 0.5, Eosinophils # 0.2, Absolute Basophils 0.1 09/09/20 06:22: Sodium 141, Plasma Sodium 141, Potassium 3.9, Chloride 109 H, Carbon Dioxide 27.6, Anion Gap 8.3, BUN 16, Creatinine 0.87, Est GFR (Non-Af Amer) 68, BUN/Creatinine Ratio 18.4, Random Glucose 109, Calcium 8.7, Phosphorus 3.7, Magnesium 2.1, TSH (Reflex) 5.152 H 09/09/20 06:22: Troponin I Less than 0.017 09/09/20 06:48: Free T4 1.00 Discharge Location: Home Disposition: Home self-care Condition: Stable Discharge Activity: Activity as tolerated Discharge Diet: General/regular food Prescriptions (Any new or edited meds): Clindamycin HCl [Cleocin] 150 mg PO Q8H #11 cap Transmission Status: Pending to [facility] Clindamycin HCl [Cleocin HCl] 300 mg PO Q8H #11 cap Transmission Status: Pending to [facility] Complete Home Medications List: Complete Home Medication List: Aspirin 325 mg PO DAILY 11/19/15 Clindamycin HCl [Cleocin HCl] 300 mg PO Q8H #11 cap 09/10/20 Clindamycin HCl [Cleocin] 150 mg PO Q8H #11 cap 09/10/20
--- NOTE | 2020-09-10 09:38 | ECHO ---
This report is available in the EMR
[2020-09-10 11:32] VITALS: BP 168/80
== END 2020-09-10 10:00 | disposition home or self-care (01) ==
LOC: ER 21:22 → MS 21:22
PROVIDERS: ADMIT Family Medicine; ATTEND Family Medicine